=== PATIENT | male | born 1950 | race African-American/Black ===

== ENCOUNTER 2019-09-21 13:37 | Emergency (ER) | payer MEDICARE ==
[2019-09-21] MEDS ORDERED: Iopamidol 370 76% 100 ML VIAL ONE (14:08)
[2019-09-21] MEDS ORDERED: Ondansetron PF 4 MG/2 ML Vial ONE (14:22)
[2019-09-21 14:57] LABS: Hemoglobin 13.6 g/dL (14.0-18.0); Mean Corpuscular HGB CONC 30.1 g/dL (32.0-36.0); Mean Corpuscular Hemoglobin 25.1 pg (27.0-31.0); Mean Corpuscular Volume 83.4 fL (78.0-98.0); Mean Platelet Volume 6.6 fL (7.4-10.4); Platelet Count 223 thou/uL (130-400); RBC Distribution Width 13.5 % (11.5-14.5); Red Blood Cell (RBC) Count 5.43 mill/uL (4.70-6.10); White Blood Cell (WBC) Count 7.7 thou/uL (4.8-10.8)
[2019-09-21 15:10] LABS: ALT (SGPT) 354 U/L (8-55); AST (SGOT) 663 U/L (5-34); Alkaline Phosphatase 160 U/L (40-110); Anion Gap 21 mmol/L (10-20); BUN (Urea Nitrogen) 7 mg/dL (8.4-25.7); Bilirubin, Total 3.1 mg/dL (0.2-1.2); Calc. Creatinine Clearance 0 mL/min (70-130); Calcium 9.2 mg/dL (7.8-10.44); Carbon Dioxide 26 mmol/L (23-31); Chloride 100 mmol/L (98-107); Estimated GFR-MDRD Greater than 90; Globulin 3.4 g/dL (2.4-3.5); Glucose 204 mg/dL (80-115); Lipase 29 U/L (8-78); Potassium 3.5 mmol/L (3.5-5.1); Protein, Total 7.4 g/dL (5.8-8.1); Sodium 143 mmol/L (136-145)
[2019-09-21 15:12] LABS: Band 37 % (5-11); Lymphocytes 3 % (21-51); MDiff Complete? YES; Monocytes 2 % (0-10); Neutrophil 58 % (42-75); Reflex for Review?? NO; Vacuoles MODERATE
[2019-09-21 15:27] LABS: Bilirubin Small (Negative); Blood, Urine Negative (Negative); Clarity Clear (Clear); Glucose, Urine (Dipstick) 100 mg/dL (Negative); Leukocyte Negative (Negative); Nitrite Negative (Negative); Protein, Urine (Dipstick) Negative (Neg-Trace); Urobilinogen > or = 8.0 mg/dL (Less than 2)
[2019-09-21] MEDS ORDERED: metroNIDAZOLE 500 MG/100 ML BAG ONE (15:52)
[2019-09-21] MEDS ORDERED: cefTRIAXone\\ROCEPHIN 1 GM VIAL ONE (15:52)
--- NOTE | 2019-09-21 16:27 | CT ---
CT ABDOMEN AND PELVIS WITHOUT CONTRAST: Date: 09-21-[address] of the abdomen and pelvis was done for evaluation of abdominal pain with nausea and vomitin g. Comparison: 03-21-16 FINDINGS: The lung bases are clear except for some dependent atelectasis. The liver, spleen, and pancreas were unremarkable. The gallbladder seems mildly distended and has multiple gallstones within it. The commo n bile duct is somewhat large measuring 9-10 mm in the pancreatic head which is larger than it was on the 2016 study. The adrenal glands and kidneys showed no acute findings. There may be a small subcen timeter cyst in the upper pole of the right kidney. The aorta shows considerable arteriosclerotic hayes nge and plaque formation. All mesenteric vessels fill. There is slight dilation of the distal abdomin al aorta just above the bifurcation as on the prior study. It still measures only 2.5 cm in diameter. The bowel shows no distention to suggest obstruction. There is no wall thickening. Very little is see n of the right colon, so it may have been resected or positioned differently. There is no free air or free fluid. CT of the pelvis shows prostatic enlargement. Bilateral fat filled inguinal hernias are present as be fore. Degenerative changes are present throughout the spine. IMPRESSION: 1. Mildly distended gallbladder with gallstones and enlargement of the common bile duct. The possibil ity of cholecystitis should be considered. Other studies would be needed for confirmation. 2. Prostatic enlargement. 3. Minor findings as listed above. Findings discussed with Dr. Fay at [id number] 09-21-19. POS: HOME
== END 2019-09-21 16:55 | disposition short-term general hospital (02) ==
LOC: BURERS 13:37
DX: K81.0 Acute cholecystitis (principal); E87.2 Acidosis; I25.2 Old myocardial infarction; I10 Essential (primary) hypertension; Z86.73 Personal history of transient ischemic attack (TIA), and cerebral infarction without residual deficits; Z87.891 Personal history of nicotine dependence; Z79.899 Other long term (current) drug therapy; Z79.84 Long term (current) use of oral hypoglycemic drugs
CPT/HCPCS: 74177; 80053; 81003; 83605; 83690; 85025; 87040; 87077; 87149; 87186; 96361; 96374; 96375; J0696; J2405; Q9967

== ENCOUNTER 2019-10-06 08:20 | Inpatient (IN) | payer MEDICARE ==
[2019-10-06] MEDS ORDERED: Iopamidol 370 76% 100 ML VIAL ONE (08:38)
[2019-10-06] MEDS ORDERED: Ondansetron PF 4 MG/2 ML Vial ONE (09:06)
[2019-10-06 09:20] LABS: #Basophils 0.2 thou/uL (0.0-0.2); #Eosinphils 0.1 thou/uL (0.0-0.7); #Lymphocytes 1.1 thou/uL (1.20-3.40); #Monocytes 0.6 thou/uL (0.11-0.59); #Neutrophils 7.6 thou/uL (1.40-6.50); %Basophils 1.6 % (0.0-1.0); %Eosinophils 0.8 % (0.0-10.0); %Lymphocytes 11.7 % (21.0-51.0); %Monocytes 6.4 % (0.0-10.0); %Neutrophils 79.5 % (42.0-75.0); Hemoglobin 11.5 g/dL (14.0-18.0); Mean Corpuscular HGB CONC 30.1 g/dL (32.0-36.0); Mean Corpuscular Hemoglobin 25.8 pg (27.0-31.0); Mean Corpuscular Volume 85.8 fL (78.0-98.0); Mean Platelet Volume 5.8 fL (7.4-10.4); Platelet Count 536 thou/uL (130-400); RBC Distribution Width 15.6 % (11.5-14.5); Red Blood Cell (RBC) Count 4.44 mill/uL (4.70-6.10); White Blood Cell (WBC) Count 9.6 thou/uL (4.8-10.8)
[2019-10-06 09:34] LABS: ALT (SGPT) 29 U/L (8-55); AST (SGOT) 25 U/L (5-34); Albumin 3.4 g/dL (3.4-4.8); Alkaline Phosphatase 88 U/L (40-110); Anion Gap 16 mmol/L (10-20); BUN (Urea Nitrogen) 11 mg/dL (8.4-25.7); Bilirubin, Total 1.3 mg/dL (0.2-1.2); CK (CPK) 123 U/L (30-200); Calc. Creatinine Clearance 0 mL/min (70-130); Carbon Dioxide 24 mmol/L (23-31); Chloride 105 mmol/L (98-107); Estimated GFR-MDRD Greater than 90; Globulin 3.5 g/dL (2.4-3.5); Glucose 157 mg/dL (80-115); Lipase 74 U/L (8-78); Potassium 3.7 mmol/L (3.5-5.1); Protein, Total 6.9 g/dL (5.8-8.1); Sodium 141 mmol/L (136-145)
--- NOTE | 2019-10-06 09:44 | RAD ---
Exam: Chest one view HISTORY:Vomiting. Comparison: 09/29/2019 FINDINGS: Cardiac silhouette: Normal Aorta: Unremarkable Pulmonary vessels: Normal Costophrenic angles: Fonda like opacity in the right lung base suggesting pleural effusion. Lines and tubes: Interval removal of a right-sided central venous catheter. Stable stent projects brunilda ng the medial left lung apex. LUNGS: No masses or consolidation. Pneumothorax: None Osseous abnormalities: None IMPRESSION: Small right-sided pleural effusion.
[2019-10-06] MEDS ORDERED: Promethazine HCl 25 MG/ML VIAL ONE ×2 (10:19→12:07)
--- NOTE | 2019-10-06 10:22 | CT ---
CT ABDOMEN WITH CONTRAST CT PELVIS WITH CONTRAST: DATE: 10/06/2019 HISTORY: 69-year-old male with nausea and hematemesis after complicated cholecystectomy. COMPARISON: 09/26/2019 TECHNIQUE: IV injection of iodinated contrast media: administered. Oral contrast media:Not administered FINDINGS: The postoperative pneumoperitoneum has resolved. Small to moderate size right pleural effusion, decre ased in volume since prior CT. Surgical clips in gallbladder fossa. Hematoma in gallbladder fossa has become slightly smaller in size, currently measuring approximately 4.5 x 3.5 x 5 cm. It broadly a buts the first and second stages of the duodenum, which appears to have mural thickening similar to previous CT. This hematoma is contiguous with an inferiorly extending component caudal to the inferior tip of the right lobe of liver that measures approximately 3.5 x 4 x 5 cm. This has decreased in size somewhat. Both of these components are also contiguous with a subcapsular hepatic hematoma component which has significantly decreased in size and is now very small, around the inferior aspect of the right lobe of liver. The rest of the liver appears normal. Adrenals, pancreas, spleen, and urinary bladder, are essentially normal. No hydronephrosis. Heavy ath erosclerotic calcified and noncalcified plaque throughout abdominal aorta and iliac arteries. No hydronephrosis. No small bowel dilation. No ascites. Enlarged prostate gland. No colonic diverticulit is. Surgically absent appendix. Right partial hemicolectomy. Ileocolic anastomosis in right upper quadrant. Diffuse mural thickening with mural edema, and enhancement of mucosa, of distal esophagus, consistent with esophagitis, remains. IMPRESSION: 1) interval decrease in size of complex postsurgical hematoma in right upper quadrant from recent cho lecystectomy. 2) interval decrease in size of right pleural effusion. Interval resolution of small left pleural eff usion. 3) esophagitis remains. 4) severe atherosclerosis of abdominal aorta and iliac arteries.
[2019-10-06] MEDS ORDERED: Promethazine HCl 25 MG/ML VIAL IM/IV PRN (12:17)
[2019-10-06] MEDS: Sodium Chloride 0.9% 1,000 ML IV SCH (12:22)
[2019-10-06] MEDS ORDERED: Acetaminophen 500 MG TAB PO PRN (15:55)
[2019-10-06 15:57] VITALS: BMI 22.6
[2019-10-06] MEDS ORDERED: Metoclopramide HCl 10 MG/2 ML VIAL IVP SCH (16:30)
[2019-10-06] MEDS: metFORMIN 500 MG TAB PO SCH (16:49)
[2019-10-06] MEDS ORDERED: Amlodipine 10 MG TAB PO SCH (17:15)
[2019-10-06] MEDS: Vancomycin HCl 25 MG/ML Oral PO SCH (17:55)
[2019-10-06] MEDS: chlorproMAZINE HCl 25 MG TAB PO SCH ×2 (17:56→23:52)
[2019-10-06] MEDS ORDERED: Vancomycin HCl 25 MG/ML Oral PO SCH (18:00)
[2019-10-06] MEDS ORDERED: Prochlorperazine 10 MG/2 ML VIAL IVP SCH ×2 (19:00→23:59)
[2019-10-06] MEDS ORDERED: Prochlorperazine 10 MG/2 ML VIAL ONE (20:12)
[2019-10-06] MEDS: Prochlorperazine 10 MG/2 ML VIAL IVP SCH (20:30)
[2019-10-06] MEDS: Gabapentin 100 MG CAP PO SCH (20:33)
[2019-10-06] MEDS: Senokot 8.6 MG TAB PO SCH (20:34)
[2019-10-06] MEDS: Docusate 100 MG CAP PO SCH (20:34)
[2019-10-06] MEDS: Baclofen 10 MG TAB PO SCH (20:34)
[2019-10-06] MEDS: Famotidine 20 MG TAB PO SCH (20:34)
[2019-10-06] MEDS: Atorvastatin Calcium 10 MG TAB PO SCH (20:34)
--- NOTE | 2019-10-06 20:54 | HP ---
CHIEF COMPLAINT: Intractable nausea and vomiting. HISTORY OF PRESENT ILLNESS: This 69-year-old male was brought to the [facility] Emergency Department via EMS secondary to complaints of intractable nausea and vomiting present for the last couple of days. Of note, the patient was recently admitted at [facility] in [place] for similar symptoms, 09/26/2019 to 10/02/2019. He had a recent ERCP and cholecystectomy, and thereafter, developed the nausea and vomiting with concern for hematemesis. At that time, a CT scan was done showing blood in the gallbladder fossa, likely expected postoperatively. He was evaluated by Gastroenterology with an upper GI showing evidence of gastroparesis and reflux. During his stay, he developed diarrhea, which was positive for C diff. For this, he was started on oral vancomycin. The patient improved and ultimately discharged home; however, as mentioned as of a couple of days ago again developed intractable nausea, vomiting, and hiccups as well. Workup in the emergency department revealed a stable CBC and CMP along with normal lipase. CT of the abdomen and pelvis was done showing an interval decrease in size of complex postsurgical hematoma in the right upper quadrant from recent cholecystectomy; interval decrease in size of right pleural effusion and interval resolution of small left pleural effusion; esophagitis remained; severe atherosclerosis of abdominal aorta and iliac arteries. The patient denies having any significant pain, but has been unable to effectively maintain a p.o. diet over the last couple of days and thus requires admission. PAST MEDICAL HISTORY: Hypertension, type 2 diabetes mellitus, coronary artery disease, history of stroke, for which he has right hemiparesis and restricted movements of only the left upper extremity and bed-bound status. PAST SURGICAL HISTORY: EGD in 2011 with duodenal biopsy that was negative and gastric biopsies negative for metaplasia and H pylori. Right hemicolectomy in 2011 for adenocarcinoma. 04/22/2012, laparoscopic hand-assisted right colectomy. 04/29/2012, laparoscopy with irrigation and placement of a drain. 05/03/2012, required repeat operation with resection of the terminal ileum, proximal transverse colostomy with redo of his anastomosis. The patient has had cervical spine surgery in 2002 and 2005. Prior appendectomy and most recently a cholecystectomy and endoscopic retrograde cholangiopancreatography with sphincterotomy. ALLERGIES: IBUPROFEN, ASPIRIN, AND FLUOXETINE. SOCIAL HISTORY: The patient lives at home with his son and [id number], who take care of him as he is total assist. FAMILY HISTORY: Noncontributory. CURRENT MEDICATIONS: 1. Amlodipine 10 mg p.o. daily. 2. Potassium chloride 20 mEq daily. 3. Protonix 40 mg daily. 4. Lopressor 12.5 mg b.i.d. 5. Magnesium oxide 400 mg daily. 6. Tylenol 1000 mg q.6 p.r.n. 7. Simvastatin 20 mg at bedtime. 8. Metformin 500 mg b.i.d. 9. Losartan 100 mg daily. 10. Gabapentin 400 mg b.i.d. 11. Lasix 20 mg daily. 12. Baclofen 5 mg b.i.d. 13. Aspirin 81 mg daily. The patient reports that he has been intolerant to high-dose aspirin, but can take low-dose aspirin. LABORATORY DATA: White blood cell count 9.6, hemoglobin 11.5, hematocrit 38.1, and platelets 536. Sodium 141, potassium 3.7, BUN 11, creatinine 0.77, GFR is greater than 90, and glucose 157. AST 25, ALT 29, and alk phos 88. Lipase 74. IMAGING: Chest x-ray shows a small right-sided pleural effusion. CT of abdomen and pelvis shows interval decrease in size of complex postsurgical hematoma and right upper quadrant from recent cholecystectomy, minimal decrease in size of right pleural effusion with interval resolution of small left pleural effusion, esophagitis remains, severe atherosclerosis of abdominal aorta and iliac arteries. REVIEW OF SYSTEMS: GENERAL: Denies fever or chills. EARS, NOSE, AND THROAT: Denies sore throat, nasal drainage or congestion. CARDIOVASCULAR: Denies chest pain or palpitations. RESPIRATORY: Denies shortness of breath or cough. GASTROINTESTINAL: Complains of nausea and vomiting. Denies abdominal pain. GENITOURINARY: Denies hematuria. MUSCULOSKELETAL: Denies joint pain. DERMATOLOGIC: Denies rash. NEUROLOGIC: Denies headache. PHYSICAL EXAMINATION: VITAL SIGNS: Temperature is 97.9, pulse is 95, respiratory rate is 20, oxygen saturation is 96% on room air, and blood pressure is 135/84. GENERAL: The patient is alert and oriented, in no acute distress. HEAD, EYES, EARS, NOSE, AND THROAT: Normocephalic and atraumatic. Extraocular muscles are intact bilaterally. Sclerae are clear. NECK: Supple without lymphadenopathy. CARDIOVASCULAR: Regular rate and rhythm. Normal S1 and S2. LUNGS: Clear to auscultation bilaterally. ABDOMEN: Soft. Nontender to palpation. There is a healing surgical site across the right upper quadrant with Steri-Strips in place. No drainage or extending erythema from surgical site. EXTREMITIES: Chronic lower extremity edema. NEUROLOGIC: Cranial nerves 2 through 12 are grossly intact. The patient has right hemiparesis. He has some movement of the left upper extremity with contractures of the left hand. ASSESSMENT AND PLAN: 1. Intractable nausea and vomiting. The patient received Zofran in the emergency department and Phenergan. We will resume Phenergan along with Reglan. He is currently on normal saline at 50 mL an hour secondary to decreased p.o. intake. 2. Clostridium difficile. We will provide oral vancomycin 125 mg q.6 hours x10 days. The patient is on contact precautions. Start probiotic. 3. Right pleural effusion. We will resume the patient's Lasix. This is improving per imaging. 4. Esophagitis. The patient is on Protonix 40 mg daily, will add Famotidine. 5. Intractable hiccups of unknown etiology. We will add chlorpromazine for this issue. He is on Reglan, baclofen and gabapentin, which all may help improve this issue otherwise. 6. Hypertension. We will resume the patient's home blood pressure medication. 7. Type 2 diabetes mellitus. We will resume the patient on metformin and monitor glucose checks. 8. Status post cholecystectomy. Wound site is healing appropriately. Labs are appropriate. We will repeat labs in the morning. Code status is full. Job ID: [id number] MTDD
[2019-10-06] MEDS: Metoclopramide HCl 10 MG/2 ML VIAL IVP SCH (21:37)
[2019-10-07] MEDS: Vancomycin HCl 25 MG/ML Oral PO SCH ×4 (00:03→18:14)
[2019-10-07] MEDS ORDERED: Prochlorperazine 10 MG/2 ML VIAL ONE ×2 (03:07→08:04)
[2019-10-07] MEDS: Prochlorperazine 10 MG/2 ML VIAL IVP SCH ×2 (03:17→08:47)
[2019-10-07] MEDS: Metoclopramide HCl 10 MG/2 ML VIAL IVP SCH ×3 (05:41→18:13)
[2019-10-07] MEDS: Sodium Chloride 0.9% 1,000 ML IV SCH (05:42)
[2019-10-07] MEDS: chlorproMAZINE HCl 25 MG TAB PO SCH ×2 (05:42→13:40)
[2019-10-07] MEDS ORDERED: Polyethylene Glycol 3350 17 GM Packet PO PRN (07:55)
[2019-10-07] MEDS: Gabapentin 100 MG CAP PO SCH ×2 (08:50→22:32)
[2019-10-07] MEDS: Baclofen 10 MG TAB PO SCH ×2 (08:52→22:33)
[2019-10-07] MEDS: Famotidine 20 MG TAB PO SCH ×2 (08:54→22:34)
[2019-10-07] MEDS: metFORMIN 500 MG TAB PO SCH ×2 (08:54→18:13)
[2019-10-07] MEDS: Docusate 100 MG CAP PO SCH ×2 (08:54→22:34)
[2019-10-07] MEDS ORDERED: Amlodipine 10 MG TAB PO SCH (09:00)
[2019-10-07] MEDS ORDERED: Furosemide 20 MG TAB PO SCH (09:00)
[2019-10-07] MEDS ORDERED: Aspirin 81 mg Enteric Coated Tablet PO SCH (09:00)
[2019-10-07] MEDS ORDERED: Saccharomyces boulardii 250 MG CAP PO SCH (09:00)
[2019-10-07] MEDS ORDERED: Isosorbide Mononitrate (ER) 30 MG TAB PO SCH (09:00)
[2019-10-07] MEDS ORDERED: Magnesium Oxide 400 MG TAB PO SCH (09:00)
[2019-10-07] MEDS ORDERED: Potassium Chloride 20 MEQ TAB PO SCH (09:00)
[2019-10-07] MEDS ORDERED: Losartan Potassium 50 MG TAB PO SCH (09:00)
[2019-10-07 13:22] LABS: #Basophils 0.1 thou/uL (0.0-0.2); #Eosinphils 0.2 thou/uL (0.0-0.7); #Lymphocytes 1.5 thou/uL (1.20-3.40); #Monocytes 1.2 thou/uL (0.11-0.59); #Neutrophils 8.4 thou/uL (1.40-6.50); %Basophils 0.8 % (0.0-1.0); %Eosinophils 1.7 % (0.0-10.0); %Monocytes 10.5 % (0.0-10.0); %Neutrophils 73.9 % (42.0-75.0); Hemoglobin 10.3 g/dL (14.0-18.0); Mean Corpuscular HGB CONC 31.6 g/dL (32.0-36.0); Mean Corpuscular Hemoglobin 26.7 pg (27.0-31.0); Mean Corpuscular Volume 84.5 fL (78.0-98.0); Mean Platelet Volume 5.9 fL (7.4-10.4); Platelet Count 492 thou/uL (130-400); RBC Distribution Width 15.2 % (11.5-14.5); Red Blood Cell (RBC) Count 3.86 mill/uL (4.70-6.10); White Blood Cell (WBC) Count 11.3 thou/uL (4.8-10.8)
[2019-10-07 13:38] LABS: ALT (SGPT) 23 U/L (8-55); AST (SGOT) 23 U/L (5-34); Albumin 3.2 g/dL (3.4-4.8); Alkaline Phosphatase 71 U/L (40-110); Anion Gap 16 mmol/L (10-20); BUN (Urea Nitrogen) 13 mg/dL (8.4-25.7); Bilirubin, Total 1.6 mg/dL (0.2-1.2); Calc. Creatinine Clearance 101 mL/min (70-130); Calcium 8.4 mg/dL (7.8-10.44); Carbon Dioxide 23 mmol/L (23-31); Chloride 105 mmol/L (98-107); Estimated GFR-MDRD Greater than 90; Globulin 3.2 g/dL (2.4-3.5); Glucose 148 mg/dL (80-115); Potassium 3.9 mmol/L (3.5-5.1); Protein, Total 6.4 g/dL (5.8-8.1); Sodium 140 mmol/L (136-145)
[2019-10-07 17:13] VITALS: BP 116/55; TEMP 99.9
[2019-10-07] MEDS ORDERED: Fleet Enema 133 ML BOT PR PRN (19:43)
[2019-10-07] MEDS ORDERED: Lidocaine Viscous Sol 2% 15 ml UD Cup ONE (21:21)
[2019-10-07] MEDS ORDERED: Gabapentin 100 MG CAP PO SCH (22:15)
[2019-10-07] MEDS: Senokot 8.6 MG TAB PO SCH (22:33)
[2019-10-07] MEDS: Atorvastatin Calcium 10 MG TAB PO SCH (22:33)
--- NOTE | 2019-10-07 23:27 | RAD ---
ABDOMEN ONE VIEW 10/07/19 A single portable upright view was done. The film is uninterpretable. POS: HOME
--- NOTE | 2019-10-07 23:29 | RAD ---
PORTABLE CHEST: 10/07/19 Comparison is made with an 10/06 study. The right pleural effusion is still present. It seems slight ly larger today than before. There is no appreciable fluid on the left. The heart is normal in size. The upper lobes are clear. I cannot exclude some infiltrate or atelectasis in the right base. IMPRESSION: Right pleural effusion, slightly greater than yesterday. POS: HOME
--- NOTE | 2019-10-08 13:08 | DIS ---
DATE OF ADMISSION: 10/06/2019 DATE OF DISCHARGE: 10/08/2019 ADMISSION DIAGNOSES: Intractable nausea and vomiting, Clostridium difficile, right pleural effusion, esophagitis, intractable hiccups. SECONDARY DIAGNOSES: Hypertension, type 2 diabetes mellitus, and status post cholecystectomy. PROCEDURES: On 10/06/2019, CT of abdomen and pelvis showed interval decrease in size of complex postsurgical hematoma in the right upper quadrant from recent cholecystectomy. Interval decrease in size of right pleural effusion. Interval resolution of small left pleural effusion. Esophagitis remains and severe atherosclerosis of abdominal aorta and iliac arteries. On 10/06/2019, chest x-ray shows small right-sided pleural effusion. On 10/07/2019, abdominal x-ray shows a single portable upright view was done and the film is un-interpretable. On 10/07/2019, chest x-ray shows right pleural effusion slightly greater than yesterday. HOSPITAL COURSE: This is a 69-year-old male with complicated medical history including quadriplegic status with limited mobility of the left upper extremity only requiring total assist status post CVA in 2004. The patient has had a recent admission at [facility] in [place], where he underwent a cholecystectomy and ERCP. He was discharged home shortly after this, however, returned for admission secondary to nausea and vomiting with concern for hematemesis. A CT was done upon his 2nd admission showing blood in the gallbladder fossa, likely expected postoperatively. He was evaluated by Gastroenterology with an upper GI showing evidence of gastroparesis and reflux. During this readmission, he was found to be positive for C diff for which treatment was initiated on oral vancomycin. The patient again stabilized and was discharged home on 10/02/2019. He was brought to the [facility] Emergency Department on 10/06/2019, secondary to 2-day history of redevelopment of intractable nausea and vomiting with inability to sustain p.o. intake. A repeat CT of abdomen and pelvis was done and is as of stated above. The patient complained of intractable hiccups. He was provided gentle rehydration with IV normal saline at 50 mL an hour along with medications provided for nausea, vomiting, and intractable hiccups. He was restarted on oral vancomycin for the noted history of C diff. As of yesterday morning after the patient had been admitted for one night, he did feel better with improved symptoms involving nausea and vomiting and he had tolerated a small amount of mechanical soft diet. His hiccups had dissipated overnight, but had returned as of yesterday morning. Throughout the day, the patient's status unfortunately did worsen and he did develop projectile vomiting along with a low-grade fever of 99.9, and upon re-evaluation of his labs, has developed leukocytosis. Secondary to his largely quadriplegic state, he is unable to elicit any significant information regarding abdominal pain; however, it is noted that he has been unable to have a bowel movement. Upon admission, this was noted and he had been started on a bowel regimen accordingly including MiraLAX, Senokot, and docusate. Secondary to the patient's worsening status and complicated history, I spoke with Dr. Squires for potential transfer of the patient to [facility] for higher level of care. He suggested that the patient have an NG tube placed. However, the patient did decline this. He also suggested obtaining another chest x-ray and abdominal x-ray and those readings are as above as well. I subsequently spoke with Dr. Mitchell regarding this patient's history and present condition and he has agreed to have the patient transitioned over to [facility] for higher level of care. DISPOSITION: The patient will be discharge to [facility]. DISCHARGE MEDICATIONS: Current medications that the patient has been on include; Tylenol 1000 mg p.o. q.6 hours p.r.n., amlodipine 10 mg daily, aspirin 81 mg daily, atorvastatin 10 mg nightly, baclofen 5 mg b.i.d., chlorpromazine 25 mg p.o. q.6 hours, docusate 100 mg b.i.d., famotidine 20 mg b.i.d., Lasix 20 mg daily, gabapentin 400 mg b.i.d., isosorbide mononitrate 30 mg daily, losartan 100 mg daily, magnesium oxide 400 mg daily, metformin 500 mg b.i.d., and metoclopramide 10 mg IV with meals, pantoprazole 40 mg daily, MiraLAX 17 g p.o. daily p.r.n., potassium chloride 20 mEq daily, promethazine 12.5 mg IV q.4 hours p.r.n., Florastor 250 mg daily, Senokot one tablet p.o. nightly, and vancomycin 125 mg p.o. q.6 hours. Job ID: [id number]
--- NOTE | 2019-10-10 04:31 | PQF ---
[employer] Change Attendant [employer] Winallison Adithya Christopher HERBERTH ANNE [id number] CLINICAL DOCUMENTATION CLARIFICATION FORM: POST DISCHARGE Addendum to original discharge summary date: 10/08/19 Late entry note date: 10/10/19 DATE: 10/10/2019 ATTN:HERBERTH ANNE Please exercise your independent, professional judgment in responding to the clarification form. Clinical indicators are provided on the bottom of this form for your review Please check appropriate box(s): Etiology of intractable nausea with vomiting and Hicupps [ x ] Gastroparesis [ ] GERD [ ] Post operative complication of previous Surgery [ ] Postsurgical hematoma [ ] Other diagnosis [ ] Unable to determine In addition, please specify: Present on Admission (POA): [ x ] Yes [ ] No [ ] Unable to determine For continuity of documentation, please document condition throughout progress notes and discharge summary. Thank You. CLINICAL INDICATORS - SIGNS / SYMPTOMS / LABS Intractable Nausea and vomiting - Documented in H&P on 10/06 by Lorne Ferreira He recently admitted for same symptoms on 09/26/2019 to 10/02/2019 - Documented in H&P on 10/06 by Lorne Ferreira After surgery developed nausea and vomiting - Documented in H&P on 10/06 by Lorne Ferreira He evaluated by GI showing evidence of GERD and Gastroparesis - Documented in H &P on 10/[address] abdomen and pelvis was done showing interval decrease in size of complex postsurgical hematoma from recent surgery - Documented in H&P on 10/06 by Lorne Ferreira Esophagitis - Documented in DS on 10/08 by HERBERTH ANNE RISK FACTORS He had recent ERCP and Cholecystectomy - Documented in H&P on 10/06 by Lorne Ferreira DM Clostridium difficile - Documented in DS on 10/08 by HERBERTH ANNE TREATMENTS: Patient received Zofran in the ED - Documented in H&P on 10/06 by Lorne Ferreira Resume Phenergan along with Reglan - Documented in H&P on 10/06 by Lorne Ferreira Currently Normal saline at 50ml an hour to decrease PO intake - Documented in H &P on 10/06 by Lorne Ferreira Abdomen Xray DM (This form is maintained as a part of the permanent medical record) 2014 [employer]. All Rights Reserved [email or web address] [not provided] MTDD
--- NOTE | 2019-10-14 05:35 | PQF ---
[employer] Clay Shop Supervisor Crystal Reports Winform ViewerHoAdithya caicedo HERBERTH ANNE [id number] CLINICAL DOCUMENTATION CLARIFICATION FORM: POST DISCHARGE Addendum to original discharge summary date: ____ Late entry note date: __ DATE: 10/14/2019 ATTN: HERBERTH ANNE Please exercise your independent, professional judgment in responding to the clarification form. Clinical indicators are provided on the bottom of this form for your review Please check appropriate box(s): [x] Quadriplegia was confirmed diagnosis [ ] Quadriplegia was not confirmed diagnosis [ ] Other diagnosis [ ] Unable to determine In addition, please specify: Present on Admission (POA): [x] Yes [ ] No [ ] Unable to determine For continuity of documentation, please document condition throughout progress notes and discharge summary. Thank You. CLINICAL INDICATORS - SIGNS / SYMPTOMS / LABS Patient is a quadriplegic, b/l Lower extremities are atrophic, b/l upper extremities are contracted - Documented in ED Provider report 10/06 pg#1 He can shrug at the shoulders - Documented in ED Provider report 10/06 pg#1 h/o stroke for which he has right hemiparesis & restricted movements of only the left upper extremity & bed bound status - Documented in H&P on10/06 by HERBERTH ANNE Quadriplegic status with limited mobility of the left upper extremity only requiring total assist s/p CVA in 2004 - Documented in DS on 10/08 by HERBERTH ANNE Has developed leukocytosis secondary to his largely quadriplegic state - Documented in DS on 10/08 by HERBERTH ANNE RISKS: Hx of Stroke HTN DM TREATMENTS: Aspirin 81 mg daily [employer] Shop Supervisor Crystal Reports Win[employer] Viewer (This form is maintained as a part of the permanent medical record) 2014 [employer]. All Rights Reserved [email or web address] [not provided] MTDD
== END 2019-10-08 00:25 | disposition short-term general hospital (02) | DRG 74 ==
LOC: BURERS 08:20 → BURMED 11:14
PROVIDERS: ADMIT Family Medicine; ATTEND Family Medicine
DX: E11.43 Type 2 diabetes mellitus with diabetic autonomic (poly)neuropathy (principal); J90 Pleural effusion, not elsewhere classified; I69.351 Hemiplegia and hemiparesis following cerebral infarction affecting right dominant side; G82.50 Quadriplegia, unspecified; E86.0 Dehydration; K21.9 Gastro-esophageal reflux disease without esophagitis; I10 Essential (primary) hypertension; I25.10 Atherosclerotic heart disease of native coronary artery without angina pectoris; Z90.49 Acquired absence of other specified parts of digestive tract; Z88.8 Allergy status to other drugs, medicaments and biological substances; Z79.899 Other long term (current) drug therapy; Z79.82 Long term (current) use of aspirin; B96.89 Other specified bacterial agents as the cause of diseases classified elsewhere; K21.0 Gastro-esophageal reflux disease with esophagitis; R06.6 Hiccough; Y83.8 Other surgical procedures as the cause of abnormal reaction of the patient, or of later complication, without mention of misadventure at the time of the procedure; D72.829 Elevated white blood cell count, unspecified; I25.2 Old myocardial infarction; Z85.038 Personal history of other malignant neoplasm of large intestine; Z87.891 Personal history of nicotine dependence; K31.84 Gastroparesis
CPT/HCPCS: 36416; 71045; 74018; 74177; 80053; 82550; 83690; 85025; 96365; 96375; J0780; J2405; J2550; J2765; Q9967

== ENCOUNTER 2019-10-14 13:52 | Inpatient (IN) | payer MEDICARE ==
[2019-10-14] MEDS ORDERED: Polyethylene Glycol 3350 17 GM Packet PO PRN (19:03)
[2019-10-14] MEDS: Vancomycin HCl 25 MG/ML Oral PO SCH (21:22)
[2019-10-14] MEDS: Nystatin 500,000 UNITS/5 ML UDCUP SSW SCH (21:23)
[2019-10-14] MEDS: Saccharomyces boulardii 250 MG CAP PO SCH (21:23)
[2019-10-14] MEDS: Simvastatin 40 MG TAB PO SCH (21:23)
[2019-10-14] MEDS: Metoclopramide HCl 10 MG TAB PO SCH (21:23)
[2019-10-14] MEDS: Gabapentin 100 MG CAP PO SCH (21:23)
[2019-10-14] MEDS: Aspirin 81 mg Enteric Coated Tablet PO SCH (21:23)
[2019-10-14] MEDS: Docusate 100 MG CAP PO SCH (21:24)
[2019-10-14] MEDS: Senokot 8.6 MG TAB PO SCH (21:24)
[2019-10-14] MEDS: Baclofen 10 MG TAB PO SCH (21:25)
[2019-10-14] MEDS: chlorproMAZINE HCl 25 MG TAB PO SCH (23:42)
[2019-10-15] MEDS: Vancomycin HCl 25 MG/ML Oral PO SCH ×4 (03:08→21:16)
[2019-10-15] MEDS: chlorproMAZINE HCl 25 MG TAB PO SCH ×4 (05:48→23:29)
[2019-10-15] MEDS: Nystatin 500,000 UNITS/5 ML UDCUP SSW SCH ×4 (08:14→21:14)
[2019-10-15] MEDS: Gabapentin 100 MG CAP PO SCH ×2 (08:15→21:14)
[2019-10-15] MEDS: Losartan Potassium 50 MG TAB PO SCH (08:16)
[2019-10-15] MEDS: Magnesium Oxide 400 MG TAB PO SCH (08:17)
[2019-10-15] MEDS: Furosemide 20 MG TAB PO SCH (08:17)
[2019-10-15] MEDS: Isosorbide Mononitrate (ER) 30 MG TAB PO SCH (08:17)
[2019-10-15] MEDS: Baclofen 10 MG TAB PO SCH ×2 (08:17→21:12)
[2019-10-15] MEDS: Metoclopramide HCl 10 MG TAB PO SCH ×4 (08:18→21:12)
[2019-10-15] MEDS: Aspirin 81 mg Enteric Coated Tablet PO SCH ×2 (08:18→21:12)
[2019-10-15] MEDS: metFORMIN 500 MG TAB PO SCH ×2 (08:18→16:50)
[2019-10-15] MEDS: Docusate 100 MG CAP PO SCH ×2 (08:19→21:12)
[2019-10-15] MEDS ORDERED: FLU VACC TS2019-20(65YR UP)/PF 180 MCG/0.5 ML SYRINGE IM ONE (09:00)
[2019-10-15] MEDS: Acetaminophen 500 MG TAB PO PRN ×2 (10:14→21:19)
[2019-10-15] MEDS: Senokot 8.6 MG TAB PO SCH (21:12)
[2019-10-15] MEDS: Simvastatin 40 MG TAB PO SCH (21:14)
[2019-10-15] MEDS: Saccharomyces boulardii 250 MG CAP PO SCH (21:15)
[2019-10-16] MEDS: Vancomycin HCl 25 MG/ML Oral PO SCH ×4 (02:51→20:39)
[2019-10-16] MEDS: chlorproMAZINE HCl 25 MG TAB PO SCH ×4 (05:18→23:53)
[2019-10-16] MEDS: Aspirin 81 mg Enteric Coated Tablet PO SCH ×2 (09:07→20:40)
[2019-10-16] MEDS: Acetaminophen 500 MG TAB PO PRN (09:07)
[2019-10-16] MEDS: Furosemide 20 MG TAB PO SCH (09:07)
[2019-10-16] MEDS: Gabapentin 100 MG CAP PO SCH ×2 (09:08→20:40)
[2019-10-16] MEDS: Isosorbide Mononitrate (ER) 30 MG TAB PO SCH (09:09)
[2019-10-16] MEDS: Metoclopramide HCl 10 MG TAB PO SCH ×4 (09:09→20:41)
[2019-10-16] MEDS: metFORMIN 500 MG TAB PO SCH ×2 (09:09→17:21)
[2019-10-16] MEDS: Baclofen 10 MG TAB PO SCH ×2 (09:09→20:41)
[2019-10-16] MEDS: Magnesium Oxide 400 MG TAB PO SCH (09:11)
[2019-10-16] MEDS: Losartan Potassium 50 MG TAB PO SCH (09:46)
[2019-10-16] MEDS: Docusate 100 MG CAP PO SCH ×2 (11:56→20:42)
[2019-10-16] MEDS: Nystatin 500,000 UNITS/5 ML UDCUP SSW SCH ×4 (12:01→20:40)
[2019-10-16] MEDS: Saccharomyces boulardii 250 MG CAP PO SCH (20:40)
[2019-10-16] MEDS: Simvastatin 40 MG TAB PO SCH (20:41)
[2019-10-16] MEDS: Senokot 8.6 MG TAB PO SCH (20:42)
[2019-10-17] MEDS: Vancomycin HCl 25 MG/ML Oral PO SCH ×4 (03:05→21:12)
[2019-10-17] MEDS: chlorproMAZINE HCl 25 MG TAB PO SCH ×4 (05:57→23:17)
[2019-10-17] MEDS: Metoclopramide HCl 10 MG TAB PO SCH ×4 (08:06→21:14)
[2019-10-17] MEDS: metFORMIN 500 MG TAB PO SCH ×2 (08:06→17:06)
[2019-10-17] MEDS: Magnesium Oxide 400 MG TAB PO SCH (08:58)
[2019-10-17] MEDS: Aspirin 81 mg Enteric Coated Tablet PO SCH ×2 (08:58→21:14)
[2019-10-17] MEDS: Furosemide 20 MG TAB PO SCH (08:58)
[2019-10-17] MEDS: Gabapentin 100 MG CAP PO SCH ×2 (08:58→21:13)
[2019-10-17] MEDS: Isosorbide Mononitrate (ER) 30 MG TAB PO SCH (08:59)
[2019-10-17] MEDS: Baclofen 10 MG TAB PO SCH ×2 (08:59→21:14)
[2019-10-17] MEDS: Losartan Potassium 50 MG TAB PO SCH (08:59)
[2019-10-17] MEDS: Nystatin 500,000 UNITS/5 ML UDCUP SSW SCH ×4 (09:00→21:13)
[2019-10-17] MEDS: Docusate 100 MG CAP PO SCH ×2 (09:38→21:16)
[2019-10-17] MEDS: Saccharomyces boulardii 250 MG CAP PO SCH (21:14)
[2019-10-17] MEDS: Simvastatin 40 MG TAB PO SCH (21:14)
[2019-10-17] MEDS: Senokot 8.6 MG TAB PO SCH (21:16)
[2019-10-18] MEDS: Vancomycin HCl 25 MG/ML Oral PO SCH ×4 (03:00→20:21)
[2019-10-18] MEDS: chlorproMAZINE HCl 25 MG TAB PO SCH ×4 (06:27→23:33)
[2019-10-18] MEDS: Aspirin 81 mg Enteric Coated Tablet PO SCH ×2 (08:34→20:23)
[2019-10-18] MEDS: Docusate 100 MG CAP PO SCH ×2 (08:34→20:24)
[2019-10-18] MEDS: Gabapentin 100 MG CAP PO SCH ×2 (08:35→20:22)
[2019-10-18] MEDS: Baclofen 10 MG TAB PO SCH ×2 (08:35→20:23)
[2019-10-18] MEDS: Magnesium Oxide 400 MG TAB PO SCH (08:37)
[2019-10-18] MEDS: Furosemide 20 MG TAB PO SCH (08:37)
[2019-10-18] MEDS: Losartan Potassium 50 MG TAB PO SCH (08:37)
[2019-10-18] MEDS: Isosorbide Mononitrate (ER) 30 MG TAB PO SCH (08:37)
[2019-10-18] MEDS: metFORMIN 500 MG TAB PO SCH ×2 (08:37→16:09)
[2019-10-18] MEDS: Metoclopramide HCl 10 MG TAB PO SCH ×4 (08:37→20:23)
[2019-10-18] MEDS: Nystatin 500,000 UNITS/5 ML UDCUP SSW SCH ×4 (08:38→20:22)
[2019-10-18] MEDS: Saccharomyces boulardii 250 MG CAP PO SCH (20:22)
[2019-10-18] MEDS: Simvastatin 40 MG TAB PO SCH (20:23)
[2019-10-18] MEDS: Senokot 8.6 MG TAB PO SCH (20:24)
[2019-10-18] MEDS: Acetaminophen 500 MG TAB PO PRN (23:33)
[2019-10-19] MEDS: Vancomycin HCl 25 MG/ML Oral PO SCH ×4 (03:21→20:10)
[2019-10-19] MEDS: chlorproMAZINE HCl 25 MG TAB PO SCH ×4 (05:10→23:54)
[2019-10-19] MEDS: Nystatin 500,000 UNITS/5 ML UDCUP SSW SCH ×4 (08:07→20:08)
[2019-10-19] MEDS: Baclofen 10 MG TAB PO SCH ×2 (08:07→20:06)
[2019-10-19] MEDS: Gabapentin 100 MG CAP PO SCH ×2 (08:07→20:05)
[2019-10-19] MEDS: Magnesium Oxide 400 MG TAB PO SCH (08:09)
[2019-10-19] MEDS: metFORMIN 500 MG TAB PO SCH ×2 (08:09→16:27)
[2019-10-19] MEDS: Losartan Potassium 50 MG TAB PO SCH (08:09)
[2019-10-19] MEDS: Docusate 100 MG CAP PO SCH ×2 (08:09→20:07)
[2019-10-19] MEDS: Furosemide 20 MG TAB PO SCH (08:09)
[2019-10-19] MEDS: Aspirin 81 mg Enteric Coated Tablet PO SCH ×2 (08:10→20:05)
[2019-10-19] MEDS: Metoclopramide HCl 10 MG TAB PO SCH ×4 (08:10→21:20)
[2019-10-19] MEDS: Isosorbide Mononitrate (ER) 30 MG TAB PO SCH (08:11)
[2019-10-19] MEDS: Acetaminophen 500 MG TAB PO PRN ×2 (15:55→23:54)
[2019-10-19] MEDS: Saccharomyces boulardii 250 MG CAP PO SCH (20:06)
[2019-10-19] MEDS: Simvastatin 40 MG TAB PO SCH (20:07)
[2019-10-19] MEDS: Senokot 8.6 MG TAB PO SCH (20:08)
[2019-10-20] MEDS: Vancomycin HCl 25 MG/ML Oral PO SCH ×4 (03:47→21:22)
[2019-10-20] MEDS: chlorproMAZINE HCl 25 MG TAB PO SCH ×3 (06:25→17:32)
[2019-10-20] MEDS: Nystatin 500,000 UNITS/5 ML UDCUP SSW SCH ×4 (08:29→21:23)
[2019-10-20] MEDS: Aspirin 81 mg Enteric Coated Tablet PO SCH ×2 (08:30→21:23)
[2019-10-20] MEDS: Magnesium Oxide 400 MG TAB PO SCH (08:30)
[2019-10-20] MEDS: Metoclopramide HCl 10 MG TAB PO SCH ×4 (08:30→21:23)
[2019-10-20] MEDS: Gabapentin 100 MG CAP PO SCH ×2 (08:30→21:24)
[2019-10-20] MEDS: Furosemide 20 MG TAB PO SCH (08:30)
[2019-10-20] MEDS: metFORMIN 500 MG TAB PO SCH ×2 (08:31→17:01)
[2019-10-20] MEDS: Losartan Potassium 50 MG TAB PO SCH (08:31)
[2019-10-20] MEDS: Baclofen 10 MG TAB PO SCH ×2 (08:31→21:23)
[2019-10-20] MEDS: Docusate 100 MG CAP PO SCH ×2 (08:31→21:26)
[2019-10-20] MEDS: Isosorbide Mononitrate (ER) 30 MG TAB PO SCH (08:32)
[2019-10-20] MEDS: Saccharomyces boulardii 250 MG CAP PO SCH (21:24)
[2019-10-20] MEDS: Simvastatin 40 MG TAB PO SCH (21:24)
[2019-10-20] MEDS: Senokot 8.6 MG TAB PO SCH (21:26)
[2019-10-21] MEDS: chlorproMAZINE HCl 25 MG TAB PO SCH ×4 (00:28→17:48)
[2019-10-21] MEDS: Vancomycin HCl 25 MG/ML Oral PO SCH ×4 (03:36→20:38)
[2019-10-21] MEDS: metFORMIN 500 MG TAB PO SCH ×2 (07:49→17:48)
[2019-10-21] MEDS: Metoclopramide HCl 10 MG TAB PO SCH ×4 (07:49→20:41)
[2019-10-21] MEDS: Docusate 100 MG CAP PO SCH ×2 (08:32→20:41)
[2019-10-21] MEDS: Aspirin 81 mg Enteric Coated Tablet PO SCH ×2 (08:32→20:40)
[2019-10-21] MEDS: Magnesium Oxide 400 MG TAB PO SCH (08:32)
[2019-10-21] MEDS: Furosemide 20 MG TAB PO SCH (08:32)
[2019-10-21] MEDS: Gabapentin 100 MG CAP PO SCH ×2 (08:32→20:40)
[2019-10-21] MEDS: Baclofen 10 MG TAB PO SCH ×2 (08:33→20:40)
[2019-10-21] MEDS: Losartan Potassium 50 MG TAB PO SCH (08:33)
[2019-10-21] MEDS: Isosorbide Mononitrate (ER) 30 MG TAB PO SCH (08:33)
[2019-10-21] MEDS: Nystatin 500,000 UNITS/5 ML UDCUP SSW SCH ×4 (08:35→20:39)
[2019-10-21] MEDS: Acetaminophen 500 MG TAB PO PRN ×2 (14:19→20:39)
[2019-10-21] MEDS: Saccharomyces boulardii 250 MG CAP PO SCH (20:39)
[2019-10-21] MEDS: Senokot 8.6 MG TAB PO SCH (20:41)
[2019-10-21] MEDS: Simvastatin 40 MG TAB PO SCH (20:41)
[2019-10-22] MEDS: chlorproMAZINE HCl 25 MG TAB PO SCH ×3 (00:27→12:11)
[2019-10-22] MEDS: Vancomycin HCl 25 MG/ML Oral PO SCH ×4 (03:47→21:24)
[2019-10-22] MEDS: Acetaminophen 500 MG TAB PO PRN (05:41)
[2019-10-22] MEDS: Nystatin 500,000 UNITS/5 ML UDCUP SSW SCH ×4 (08:10→21:25)
[2019-10-22] MEDS: Gabapentin 100 MG CAP PO SCH ×2 (08:10→21:24)
[2019-10-22] MEDS: Losartan Potassium 50 MG TAB PO SCH (08:11)
[2019-10-22] MEDS: Magnesium Oxide 400 MG TAB PO SCH (08:11)
[2019-10-22] MEDS: metFORMIN 500 MG TAB PO SCH ×2 (08:12→17:30)
[2019-10-22] MEDS: Furosemide 20 MG TAB PO SCH (08:12)
[2019-10-22] MEDS: Docusate 100 MG CAP PO SCH ×2 (08:12→21:25)
[2019-10-22] MEDS: Metoclopramide HCl 10 MG TAB PO SCH ×4 (08:12→21:25)
[2019-10-22] MEDS: Aspirin 81 mg Enteric Coated Tablet PO SCH ×2 (08:12→21:25)
[2019-10-22] MEDS: Isosorbide Mononitrate (ER) 30 MG TAB PO SCH (08:14)
[2019-10-22] MEDS: Baclofen 10 MG TAB PO SCH ×2 (08:14→21:25)
[2019-10-22] MEDS: Simvastatin 40 MG TAB PO SCH (21:25)
[2019-10-22] MEDS: Senokot 8.6 MG TAB PO SCH (21:25)
[2019-10-22] MEDS: Saccharomyces boulardii 250 MG CAP PO SCH (21:27)
[2019-10-23] MEDS: Vancomycin HCl 25 MG/ML Oral PO SCH ×4 (03:26→21:53)
[2019-10-23] MEDS: Losartan Potassium 50 MG TAB PO SCH (08:48)
[2019-10-23] MEDS: Furosemide 20 MG TAB PO SCH (08:48)
[2019-10-23] MEDS: Gabapentin 100 MG CAP PO SCH ×2 (08:48→21:53)
[2019-10-23] MEDS: Magnesium Oxide 400 MG TAB PO SCH (08:49)
[2019-10-23] MEDS: Baclofen 10 MG TAB PO SCH ×2 (08:49→21:54)
[2019-10-23] MEDS: metFORMIN 500 MG TAB PO SCH ×2 (08:49→16:40)
[2019-10-23] MEDS: Metoclopramide HCl 10 MG TAB PO SCH ×4 (08:49→21:54)
[2019-10-23] MEDS: Isosorbide Mononitrate (ER) 30 MG TAB PO SCH (08:49)
[2019-10-23] MEDS: Docusate 100 MG CAP PO SCH ×2 (08:49→21:53)
[2019-10-23] MEDS: Aspirin 81 mg Enteric Coated Tablet PO SCH ×2 (08:49→21:54)
[2019-10-23] MEDS: Nystatin 500,000 UNITS/5 ML UDCUP SSW SCH ×4 (08:51→21:53)
[2019-10-23] MEDS: Acetaminophen 500 MG TAB PO PRN ×2 (14:33→21:54)
[2019-10-23] MEDS: Saccharomyces boulardii 250 MG CAP PO SCH (21:53)
[2019-10-23] MEDS: Simvastatin 40 MG TAB PO SCH (21:54)
[2019-10-23] MEDS: Senokot 8.6 MG TAB PO SCH (21:54)
[2019-10-23] MEDS: hydrOXYzine 25 MG TAB PO PRN (23:56)
[2019-10-24] MEDS: Vancomycin HCl 25 MG/ML Oral PO SCH ×4 (02:42→20:00)
[2019-10-24] MEDS: Nystatin 500,000 UNITS/5 ML UDCUP SSW SCH ×4 (08:17→20:00)
[2019-10-24] MEDS: Gabapentin 100 MG CAP PO SCH ×2 (08:19→20:00)
[2019-10-24] MEDS: metFORMIN 500 MG TAB PO SCH ×2 (08:20→16:44)
[2019-10-24] MEDS: Magnesium Oxide 400 MG TAB PO SCH (08:20)
[2019-10-24] MEDS: Furosemide 20 MG TAB PO SCH (08:21)
[2019-10-24] MEDS: Isosorbide Mononitrate (ER) 30 MG TAB PO SCH (08:21)
[2019-10-24] MEDS: Losartan Potassium 50 MG TAB PO SCH (08:21)
[2019-10-24] MEDS: Docusate 100 MG CAP PO SCH ×2 (08:22→20:14)
[2019-10-24] MEDS: Baclofen 10 MG TAB PO SCH ×2 (08:22→20:01)
[2019-10-24] MEDS: Metoclopramide HCl 10 MG TAB PO SCH ×4 (08:22→20:01)
[2019-10-24] MEDS: Aspirin 81 mg Enteric Coated Tablet PO SCH ×2 (08:23→20:01)
[2019-10-24] MEDS: Simvastatin 40 MG TAB PO SCH (20:01)
[2019-10-24] MEDS: Saccharomyces boulardii 250 MG CAP PO SCH (20:01)
[2019-10-24] MEDS: Senokot 8.6 MG TAB PO SCH (20:14)
[2019-10-24] MEDS: Acetaminophen 500 MG TAB PO PRN (21:58)
[2019-10-24] MEDS: hydrOXYzine 25 MG TAB PO PRN (21:58)
[2019-10-25] MEDS: Vancomycin HCl 25 MG/ML Oral PO SCH ×4 (02:43→20:25)
[2019-10-25] MEDS: Baclofen 10 MG TAB PO SCH ×2 (08:27→20:26)
[2019-10-25] MEDS: metFORMIN 500 MG TAB PO SCH ×2 (08:27→18:00)
[2019-10-25] MEDS: Aspirin 81 mg Enteric Coated Tablet PO SCH ×2 (08:28→20:27)
[2019-10-25] MEDS: Losartan Potassium 50 MG TAB PO SCH (08:28)
[2019-10-25] MEDS: Isosorbide Mononitrate (ER) 30 MG TAB PO SCH (08:28)
[2019-10-25] MEDS: Magnesium Oxide 400 MG TAB PO SCH (08:28)
[2019-10-25] MEDS: Furosemide 20 MG TAB PO SCH (08:29)
[2019-10-25] MEDS: Metoclopramide HCl 10 MG TAB PO SCH ×4 (08:29→20:27)
[2019-10-25] MEDS: Docusate 100 MG CAP PO SCH ×2 (10:26→20:26)
[2019-10-25] MEDS ORDERED: Gabapentin 300 MG CAP PO SCH ×2 (11:15→14:15)
[2019-10-25] MEDS: Acetaminophen 500 MG TAB PO PRN ×2 (11:39→20:26)
[2019-10-25] MEDS ORDERED: Gabapentin 100 MG CAP PO SCH (14:15)
[2019-10-25] MEDS: Gabapentin 300 MG CAP PO SCH ×2 (14:16→20:27)
[2019-10-25] MEDS: Gabapentin 100 MG CAP PO SCH ×3 (14:16→20:27)
[2019-10-25] MEDS: Simvastatin 40 MG TAB PO SCH (20:26)
[2019-10-25] MEDS: Saccharomyces boulardii 250 MG CAP PO SCH (20:27)
[2019-10-25] MEDS: Senokot 8.6 MG TAB PO SCH (20:27)
[2019-10-26] MEDS: Vancomycin HCl 25 MG/ML Oral PO SCH ×4 (02:23→20:05)
[2019-10-26] MEDS: Aspirin 81 mg Enteric Coated Tablet PO SCH ×2 (08:28→20:06)
[2019-10-26] MEDS: metFORMIN 500 MG TAB PO SCH ×2 (08:28→17:11)
[2019-10-26] MEDS: Furosemide 20 MG TAB PO SCH (08:29)
[2019-10-26] MEDS: Magnesium Oxide 400 MG TAB PO SCH (08:30)
[2019-10-26] MEDS: Baclofen 10 MG TAB PO SCH ×2 (08:30→20:06)
[2019-10-26] MEDS: Isosorbide Mononitrate (ER) 30 MG TAB PO SCH (08:32)
[2019-10-26] MEDS: Losartan Potassium 50 MG TAB PO SCH (08:32)
[2019-10-26] MEDS: Metoclopramide HCl 10 MG TAB PO SCH ×4 (08:35→20:06)
[2019-10-26] MEDS: Docusate 100 MG CAP PO SCH ×2 (08:35→20:07)
[2019-10-26] MEDS: Gabapentin 300 MG CAP PO SCH ×2 (08:36→20:06)
[2019-10-26] MEDS: Gabapentin 100 MG CAP PO SCH ×2 (08:37→20:06)
[2019-10-26] MEDS: Acetaminophen 500 MG TAB PO PRN (20:06)
[2019-10-26] MEDS: Saccharomyces boulardii 250 MG CAP PO SCH (20:06)
[2019-10-26] MEDS: Simvastatin 40 MG TAB PO SCH (20:07)
[2019-10-26] MEDS: Senokot 8.6 MG TAB PO SCH (20:07)
[2019-10-27] MEDS: Acetaminophen 500 MG TAB PO PRN ×4 (02:14→20:15)
[2019-10-27] MEDS: Vancomycin HCl 25 MG/ML Oral PO SCH ×4 (02:15→20:14)
[2019-10-27] MEDS: Metoclopramide HCl 10 MG TAB PO SCH ×4 (08:34→20:15)
[2019-10-27] MEDS: Losartan Potassium 50 MG TAB PO SCH (08:35)
[2019-10-27] MEDS: Magnesium Oxide 400 MG TAB PO SCH (08:36)
[2019-10-27] MEDS: Docusate 100 MG CAP PO SCH ×2 (08:36→20:15)
[2019-10-27] MEDS: Aspirin 81 mg Enteric Coated Tablet PO SCH ×2 (08:36→20:15)
[2019-10-27] MEDS: Furosemide 20 MG TAB PO SCH (08:37)
[2019-10-27] MEDS: Baclofen 10 MG TAB PO SCH ×2 (08:37→20:16)
[2019-10-27] MEDS: Gabapentin 100 MG CAP PO SCH ×2 (08:38→20:15)
[2019-10-27] MEDS: Isosorbide Mononitrate (ER) 30 MG TAB PO SCH (08:38)
[2019-10-27] MEDS: Gabapentin 300 MG CAP PO SCH ×2 (08:38→20:15)
[2019-10-27] MEDS: metFORMIN 500 MG TAB PO SCH ×2 (08:41→17:13)
[2019-10-27] MEDS: Saccharomyces boulardii 250 MG CAP PO SCH (20:14)
[2019-10-27] MEDS: Simvastatin 40 MG TAB PO SCH (20:15)
[2019-10-27] MEDS: Senokot 8.6 MG TAB PO SCH (20:15)
[2019-10-28] MEDS: Acetaminophen 500 MG TAB PO PRN ×2 (03:22→21:02)
[2019-10-28] MEDS: Vancomycin HCl 25 MG/ML Oral PO SCH ×4 (03:22→21:02)
[2019-10-28] MEDS: Losartan Potassium 50 MG TAB PO SCH (09:20)
[2019-10-28] MEDS: Magnesium Oxide 400 MG TAB PO SCH (09:21)
[2019-10-28] MEDS: Baclofen 10 MG TAB PO SCH ×2 (09:21→21:02)
[2019-10-28] MEDS: Gabapentin 100 MG CAP PO SCH ×2 (09:21→21:02)
[2019-10-28] MEDS: Gabapentin 300 MG CAP PO SCH ×2 (09:21→21:01)
[2019-10-28] MEDS: metFORMIN 500 MG TAB PO SCH ×2 (09:21→17:07)
[2019-10-28] MEDS: Aspirin 81 mg Enteric Coated Tablet PO SCH ×2 (09:22→21:01)
[2019-10-28] MEDS: Docusate 100 MG CAP PO SCH ×2 (09:22→21:02)
[2019-10-28] MEDS: Metoclopramide HCl 10 MG TAB PO SCH ×4 (09:22→21:01)
[2019-10-28] MEDS: Furosemide 20 MG TAB PO SCH (09:22)
[2019-10-28] MEDS: Isosorbide Mononitrate (ER) 30 MG TAB PO SCH (09:22)
[2019-10-28] MEDS: Saccharomyces boulardii 250 MG CAP PO SCH (21:01)
[2019-10-28] MEDS: hydrOXYzine 25 MG TAB PO PRN (21:02)
[2019-10-28] MEDS: Simvastatin 40 MG TAB PO SCH (21:02)
[2019-10-28] MEDS: Senokot 8.6 MG TAB PO SCH (21:02)
[2019-10-29] MEDS: Vancomycin HCl 25 MG/ML Oral PO SCH ×3 (03:12→15:30)
[2019-10-29] MEDS: Baclofen 10 MG TAB PO SCH ×2 (08:45→20:55)
[2019-10-29] MEDS: Aspirin 81 mg Enteric Coated Tablet PO SCH ×2 (08:45→20:55)
[2019-10-29] MEDS: Gabapentin 300 MG CAP PO SCH ×2 (08:45→20:55)
[2019-10-29] MEDS: Furosemide 20 MG TAB PO SCH (08:45)
[2019-10-29] MEDS: Gabapentin 100 MG CAP PO SCH ×2 (08:45→20:55)
[2019-10-29] MEDS: Docusate 100 MG CAP PO SCH ×2 (08:45→20:55)
[2019-10-29] MEDS: metFORMIN 500 MG TAB PO SCH ×2 (08:45→16:56)
[2019-10-29] MEDS: Losartan Potassium 50 MG TAB PO SCH (08:45)
[2019-10-29] MEDS: Isosorbide Mononitrate (ER) 30 MG TAB PO SCH (08:45)
[2019-10-29] MEDS: Magnesium Oxide 400 MG TAB PO SCH (08:45)
[2019-10-29] MEDS: Metoclopramide HCl 10 MG TAB PO SCH ×4 (08:45→20:55)
[2019-10-29 12:37] VITALS: BMI 22.7
[2019-10-29] MEDS: Senokot 8.6 MG TAB PO SCH (20:55)
[2019-10-29] MEDS: hydrOXYzine 25 MG TAB PO PRN (20:55)
[2019-10-29] MEDS: Simvastatin 40 MG TAB PO SCH (20:56)
[2019-10-29] MEDS: Saccharomyces boulardii 250 MG CAP PO SCH (20:56)
[2019-10-29] MEDS: Acetaminophen 500 MG TAB PO PRN (21:04)
[2019-10-30] MEDS: Acetaminophen 500 MG TAB PO PRN ×3 (03:23→21:30)
[2019-10-30 05:59] LABS: ALT (SGPT) 19 U/L (8-55); AST (SGOT) 18 U/L (5-34); Albumin 3.4 g/dL (3.4-4.8); Alkaline Phosphatase 67 U/L (40-110); Anion Gap 14 mmol/L (10-20); BUN (Urea Nitrogen) 5 mg/dL (8.4-25.7); Bilirubin, Total 0.6 mg/dL (0.2-1.2); Calc. Creatinine Clearance 93 mL/min (70-130); Calcium 8.7 mg/dL (7.8-10.44); Carbon Dioxide 21 mmol/L (23-31); Chloride 109 mmol/L (98-107); Estimated GFR-MDRD Greater than 90; Globulin 3.2 g/dL (2.4-3.5); Glucose 91 mg/dL (80-115); Potassium 3.6 mmol/L (3.5-5.1); Protein, Total 6.6 g/dL (5.8-8.1); Sodium 140 mmol/L (136-145)
[2019-10-30 06:12] LABS: Hemoglobin 12.1 g/dL (14.0-18.0); Mean Corpuscular HGB CONC 30.3 g/dL (32.0-36.0); Mean Corpuscular Hemoglobin 25.1 pg (27.0-31.0); Platelet Count 150 thou/uL (130-400); RBC Distribution Width 15.4 % (11.5-14.5); Red Blood Cell (RBC) Count 4.82 mill/uL (4.70-6.10); White Blood Cell (WBC) Count 5.1 thou/uL (4.8-10.8)
[2019-10-30 06:13] LABS: MDiff Complete? YES; Manual Diff?? YES; Mean Platelet Volume 7.2 fL (7.4-10.4)
[2019-10-30 06:14] LABS: Eosinophils 2 % (0-10); Monocytes 6 % (0-10); Neutrophil 54 % (42-75)
[2019-10-30 06:16] LABS: Anisocytosis SLIGHT = 6-15 cells (100X) (0-5/hpf); Hypochromia SLIGHT = 6-15 cells (100X) (0-5/hpf); Lymphocytes 37 % (21-51)
[2019-10-30 06:17] LABS: Ovalocytes SLIGHT = 2-5 cells (100X) (0-1/hpf)
[2019-10-30 06:18] LABS: Platelet Morphology Comment Appears Adequate
[2019-10-30] MEDS: Gabapentin 300 MG CAP PO SCH ×2 (08:59→21:30)
[2019-10-30] MEDS: Gabapentin 100 MG CAP PO SCH ×2 (08:59→21:30)
[2019-10-30] MEDS: Magnesium Oxide 400 MG TAB PO SCH (08:59)
[2019-10-30] MEDS: Docusate 100 MG CAP PO SCH ×2 (08:59→21:30)
[2019-10-30] MEDS: metFORMIN 500 MG TAB PO SCH ×2 (08:59→17:17)
[2019-10-30] MEDS: Aspirin 81 mg Enteric Coated Tablet PO SCH ×2 (08:59→21:30)
[2019-10-30] MEDS: Furosemide 20 MG TAB PO SCH (08:59)
[2019-10-30] MEDS: Isosorbide Mononitrate (ER) 30 MG TAB PO SCH (09:00)
[2019-10-30] MEDS: Metoclopramide HCl 10 MG TAB PO SCH ×4 (09:00→21:30)
[2019-10-30] MEDS: Losartan Potassium 50 MG TAB PO SCH (09:00)
[2019-10-30] MEDS: Baclofen 10 MG TAB PO SCH ×2 (09:00→21:30)
[2019-10-30] MEDS: Simvastatin 40 MG TAB PO SCH (21:30)
[2019-10-30] MEDS: Saccharomyces boulardii 250 MG CAP PO SCH (21:30)
[2019-10-30] MEDS: hydrOXYzine 25 MG TAB PO PRN (21:30)
[2019-10-30] MEDS: Senokot 8.6 MG TAB PO SCH (21:31)
[2019-10-31] MEDS: Isosorbide Mononitrate (ER) 30 MG TAB PO SCH (09:10)
[2019-10-31] MEDS: Aspirin 81 mg Enteric Coated Tablet PO SCH (09:10)
[2019-10-31] MEDS: Baclofen 10 MG TAB PO SCH (09:10)
[2019-10-31] MEDS: metFORMIN 500 MG TAB PO SCH ×2 (09:10→16:49)
[2019-10-31] MEDS: Docusate 100 MG CAP PO SCH (09:10)
[2019-10-31] MEDS: Gabapentin 100 MG CAP PO SCH (09:12)
[2019-10-31] MEDS: Losartan Potassium 50 MG TAB PO SCH (09:12)
[2019-10-31] MEDS: Gabapentin 300 MG CAP PO SCH (09:12)
[2019-10-31] MEDS: Magnesium Oxide 400 MG TAB PO SCH (09:12)
[2019-10-31] MEDS: Furosemide 20 MG TAB PO SCH (09:12)
[2019-10-31] MEDS: Metoclopramide HCl 10 MG TAB PO SCH ×3 (09:13→16:49)
[2019-10-31] MEDS: Acetaminophen 500 MG TAB PO PRN (09:21)
[2019-10-31 19:45] VITALS: BP 138/62; TEMP 98.8
--- NOTE | 2019-11-01 10:10 | DIS ---
DATE OF ADMISSION: 10/14/2019 DATE OF DISCHARGE: 10/31/2019 ADMISSION DIAGNOSES: 1. Intractable nausea and vomiting, resolved on admission. 2. Clostridium difficile colitis. 3. Hypertension. 4. Status post ileus. 5. Type 2 diabetes. 6. Generalized weakness from prolonged hospitalization. DISCHARGE DIAGNOSES: 1. Intractable nausea and vomiting, resolved on admission. 2. Clostridium difficile colitis. 3. Hypertension. 4. Status post ileus. 5. Type 2 diabetes. 6. Generalized weakness from prolonged hospitalization. 7. Dysphagia. 8. Esophageal stricture. 9. Hiatal hernia. LABORATORY DATA: CBC on October 30, 2019, with white count 5.1, hemoglobin 12.1 , hematocrit 40, platelet 150, with 54% neutrophils and 37% lymphocytes. Chemistry profile on October 30, remarkable for chloride 109, bicarb 21, BUN 5, creatinine 0.73. Hypocarbia is chronic per past values. Normal LFTs. Modified barium swallow performed on October 17 showed esophageal dysmotility with very poor peristalsis and occasional tertiary contractions. Stricture at esophagogastric junction. Small sliding hiatal hernia. For history and physical, please see dictated report from the date of admission. [facility] COURSE: Mr. 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 He had a postoperative ileus as he had recently undergone a cholecystectomy. The patient had been made n.p.o. while General Surgery was consulted and had tested positive for C difficile on September 29. He was on treatment for that. Imaging of his abdomen had showed stable postsurgical changes and had nonspecific abdominal x-ray. Dr. Squires with General Surgery and Dr. Rao with Gastroenterology evaluated the patient during his stay and the ileus subsequently resolved. He persisted to have diarrhea during this admission and his C difficile treatment was increased from 125 mg of vancomycin q.i.d. to 250 mg q.i.d. It was stated that the diarrhea had resolved prior to his transfer here , but once he was here, this resumed with multiple liquid stools 4 to 5 times per day, which eventually slowed to approximately one gelatinous stool per day at the time of his discharge. He completed his course of oral vancomycin treatment and thus was kept in contact isolation throughout his stay per our Infectious Disease protocol. He did have some difficulty swallowing initially having come in a weak state from his hospital stay. Speech Therapy evaluated the patient and recommended we obtain a modified barium swallow study, which did confirm an esophageal stricture and a small hiatal hernia. However, this did not seem to be an issue and his oral control improved during his hospital stay and working with speech therapy. They recommended a pureed diet with nectar thickened liquids for safety. It is recommended that outpatient he have further evaluation of the esophageal stricture. Due to his previous esophagitis, he is continued on a PPI despite having this recent Clostridium difficile. Therefore, I am going to continue him chronically on his probiotic and he will resume the remainder of his medications at home. The patient's lab work is all improving from his hospitalization including his acute blood loss anemia. This can be followed up as an outpatient. He will be discharged to home and I will order home health for PT, OT, and continued speech therapy. He will follow up with his PCP, Mia Avalos in [place], [place] in approximately 7 days. At that time, he can be set up for the GI followup. DISPOSITION: Discharged home. CONDITION: Good. MEDICATIONS: 1. Pantoprazole 40 mg daily. 2. Metoclopramide 10 mg p.o. a.c. and h.s. 3. Senokot 1 tablet p.o. h.s. 4. MiraLAX 17 g p.o. daily p.r.n. 5. Isosorbide mononitrate 30 mg daily. 6. Colace 100 mg p.o. b.i.d. 7. Magnesium oxide 400 mg p.o. daily. 8. Aspirin 81 mg p.o. b.i.d. 9. Extra Strength Tylenol 1000 mg p.o. q.6 hours p.r.n. 10. Gabapentin 400 mg p.o. b.i.d. 11. Furosemide 20 mg p.o. daily. 12. Glucophage 500 mg p.o. b.i.d. with meals. 13. Simvastatin 20 mg p.o. q.h.s. 14. Losartan 100 mg p.o. daily. 15. Baclofen 5 mg p.o. b.i.d. 16. Florastor 250 mg p.o. h.s. Would consider decreasing the dose of aspirin to 81 mg daily after he is 6 weeks postop from his cholecystectomy. Job ID: [id number] MTDD
== END 2019-10-31 20:35 | disposition home or self-care (01) | DRG 372 ==
LOC: BURMED 14:05
PROVIDERS: ADMIT Family Medicine; ATTEND Family Medicine
DX: A04.72 Enterocolitis due to Clostridium difficile, not specified as recurrent (principal); K91.89 Other postprocedural complications and disorders of digestive system; K56.7 Ileus, unspecified; B37.0 Candidal stomatitis; I69.351 Hemiplegia and hemiparesis following cerebral infarction affecting right dominant side; D62 Acute posthemorrhagic anemia; I10 Essential (primary) hypertension; E11.9 Type 2 diabetes mellitus without complications; I25.10 Atherosclerotic heart disease of native coronary artery without angina pectoris; R53.1 Weakness; K22.2 Esophageal obstruction; K44.9 Diaphragmatic hernia without obstruction or gangrene; R13.10 Dysphagia, unspecified; Y83.8 Other surgical procedures as the cause of abnormal reaction of the patient, or of later complication, without mention of misadventure at the time of the procedure; G47.00 Insomnia, unspecified; R53.81 Other malaise; Z90.49 Acquired absence of other specified parts of digestive tract; Z79.82 Long term (current) use of aspirin; Z79.84 Long term (current) use of oral hypoglycemic drugs; Z88.8 Allergy status to other drugs, medicaments and biological substances
CPT/HCPCS: 36415; 36416; 80053; 85025; Q0161

== ENCOUNTER 2022-02-25 12:53 | Emergency (ER) | payer MEDICARE, OTHER ==
[2022-02-25 13:52] LABS: Bilirubin Negative (Negative); Blood, Urine Negative (Negative); Clarity Clear (Clear); Glucose, Urine (Dipstick) Negative (Negative); Ketone, Urine Negative (Negative); Leukocyte Negative (Negative); Nitrite Negative (Negative); Protein, Urine (Dipstick) Negative (Neg-Trace); Specific Gravity, Urine 1.015 (1.005-1.030); Urobilinogen 0.2 mg/dL (Less than 2)
[2022-02-25 13:58] LABS: #Basophils 0.1 thou/uL (0.0-0.2); #Eosinphils 0.1 thou/uL (0.0-0.7); #Lymphocytes 0.5 thou/uL (1.20-3.40); #Monocytes 0.6 thou/uL (0.11-0.59); #Neutrophils 7.3 thou/uL (1.40-6.50); %Basophils 1.3 % (0.0-1.0); %Lymphocytes 6.3 % (21.0-51.0); %Monocytes 6.5 % (0.0-10.0); Hemoglobin 13.3 g/dL (14.0-18.0); Mean Corpuscular Volume 83.9 fL (78.0-98.0); Mean Platelet Volume 8.1 fL (7.4-10.4); Platelet Count 207 thou/uL (130-400); RBC Distribution Width 14.3 % (11.5-14.5); Red Blood Cell (RBC) Count 5.13 mill/uL (4.70-6.10); White Blood Cell (WBC) Count 8.6 thou/uL (4.8-10.8)
[2022-02-25 14:05] LABS: ALT (SGPT) 40 U/L (8-55); AST (SGOT) 42 U/L (5-34); Albumin 4.1 g/dL (3.4-4.8); Alkaline Phosphatase 71 U/L (40-110); Anion Gap 19 mmol/L (10-20); BUN (Urea Nitrogen) 9 mg/dL (8.4-25.7); Bilirubin, Total 1.5 mg/dL (0.2-1.2); Calc. Creatinine Clearance 0 mL/min (70-130); Carbon Dioxide 26 mmol/L (23-31); Chloride 99 mmol/L (98-107); Globulin 3.4 g/dL (2.4-3.5); Glucose 202 mg/dL (83-110); Potassium 3.6 mmol/L (3.5-5.1); Protein, Total 7.5 g/dL (5.8-8.1); Sodium 140 mmol/L (136-145)
[2022-02-25] MEDS ORDERED: Oseltamivir 75 MG CAP ONE (14:40)
== END 2022-02-25 15:00 | disposition home or self-care (01) ==
LOC: BURERS 12:53
DX: J10.1 Influenza due to other identified influenza virus with other respiratory manifestations (principal); I10 Essential (primary) hypertension; I25.2 Old myocardial infarction; Z87.891 Personal history of nicotine dependence; Z87.19 Personal history of other diseases of the digestive system; Z79.82 Long term (current) use of aspirin; Z79.84 Long term (current) use of oral hypoglycemic drugs; Z79.899 Other long term (current) drug therapy
CPT/HCPCS: 71045; 80053; 81003; 83880; 84484; 85025; 87804; 93005; 94760

== ENCOUNTER 2025-10-05 20:00 | Emergency (ER) | payer OTHER | END 2025-10-05 22:06 | disposition home or self-care (01) | LOC: BURERS 20:00 | DX: M70.22 Olecranon bursitis, left elbow (principal); Z86.73 Personal history of transient ischemic attack (TIA), and cerebral infarction without residual deficits; I10 Essential (primary) hypertension; I25.2 Old myocardial infarction; Z87.891 Personal history of nicotine dependence | CPT/HCPCS: 85379; 99283 ==